=== PATIENT | male | born 1950 | race Caucasian/White ===

== ENCOUNTER → 2017-04-28 | Outpatient (CLI) | payer OTHER ==
[~2017-04-28] MED LIST: ANORO ELLIPTA1 EACH IH; ASPIR 8181 M1 PO; BYSTOLIC5 MG PO; FLEXERIL10 MG PO; GLIPIZIDE10 MG PO; HYDROCHLOROTH12.5 M3 PO; MOTRIN600 MG PO; OMEPRAZOLE20 MG PO; PRAVACHOL80 MG PO; VICODIN 5-3001 EACH PO; VICTOZA 2-0.6 MG/0.1 SC; VITAMIN B-12250 MC2 PO
== END | disposition home or self-care (01) ==
LOC: NUC 10:41
DX: N28.89 Other specified disorders of kidney and ureter (principal); N26.1 Atrophy of kidney (terminal); E11.9 Type 2 diabetes mellitus without complications; Z72.0 Tobacco use
CPT/HCPCS: 78707; A9562